=== PATIENT | male | born 1980 | race Caucasian/White ===

== ENCOUNTER 2024-06-14 09:51 | Observation (INO) ==
--- OUTSIDE RECORDS SUMMARY | 2024-06-14 09:58 | External Medical Summary | Summary of Care ---
Author Name Unknown Organization [facility] Address [address] [place] [address] Phone [phone] Care Team Providers Care Ssn/Ssbn Weapons Equipment Operator Name Role Phone Unavailable Primary Care Provider Unavailabl e Reason for Visit * Reason Comments Outpatient Testing Encounter Details Date Type Department Care Team ([facility] st Contact Info) Description 03/12/2024 2:10 PM EDT Laboratory Laboratory [facility] [address] [place] [address] [facility] [address] [place] [address] Right lower quadrant abdominal pain Allergies No known active allergiesdocumented as of this encounter (statuses as of 03/12/2024) Medications Medication Sig Dispensed Refills Start Date End Date Status metroNIDAZOLE 500 MG Oral Tablet (Flagyl)Indications :Giardiasis Take 1 Tablet by mouth in the morning and 1 Tablet in the evening. 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 2-3 times a week 2021 Q2: How many drinks containi ng alcohol do you have on a typical day when you are drinking? Not asked 2021 Q3: How often do you have si x or more drinks on one occasion? Never 2021 PHQ-2 Answer Date Recorded PHQ-2 Score 0 03/25/2020 Hunger Vital Sign Answer Date Recorded Within the past 12 months, y ou worried that your food would run out before you got the money to buy more. Never true 06/25/20 22 Within the past 12 months, t he food you bought just didn't last and you didn't have money to get more. Never true 06/25/2022 Sex and Gender Information Value Date Recorded Sex Assigned at Male 06/25/2022 4:40 PM EDT Gender Identity Male 06/25/2022 4:40 PM EDT Sexual Orientation Choose not to disclose 2021 4:40 PM EDT Job Start Date Occupation Industry Not on file Not on file Not on file documented as of this encounter Plan of Treatment Upcoming Encounters Date Type Department Care Team (Late st Contact Info) Description 03/17/2024 10:15 AM EDT Imaging Radiology [facility] [address] [facility] [place] [address] 06/15/2024 8:40 AM EDT Office Visit Family Practice Sana Gusman [place] [address] [place] [address] Irais Guerrero PA-C [address] [place] [address] Pending Results Name Type Priority Associated Diagnoses Date /Time COMPREHENSIVE METABOLIC PANEL Lab Routine Right lower quadrant abdominal pain 03/12/2024 2:06 PM EDT CBC WITH WBC DIFFERENTIAL Lab Routine Right lower quadrant abdominal pain 03/12/2024 2:06 PM EDT LIPASE Lab Routine Right lower quadrant abdominal pain 03/12/2024 2:06 PM EDT CBC Lab Routine Right lower quadrant abdominal pain 03/12/2024 2:06 PM EDT DIFFERENTIAL, AUTOMATED Lab Routine Right lower quadrant abdominal pain 03/12/2024 2:06 PM EDT CULTURE, URINE, QUANTITATIVE Lab Routine Right lower quadrant abdominal pain 03/12/2024 2:10 PM EDT URINALYSIS WITH MICROSCOPIC EXAM Lab STAT Right lower quadrant abdominal pain 03/12/2024 2:10 PM EDT Health Maintenance Due Date Last Done Comments Hepatitis B (1 of 3 - 19+ 3-dose series) 1998 Depression Screening 03/25/2021 03/25/2020, 11/01/2015 (Discussed) COVID-19 Vaccine ( season) 2023 08/30/2021, 01/14/2021 Influenza Vaccine (FLU shot) (Season Ended) 2024 Diabetes Screening 07/03/2026 07/03/2023, 0 07/12/2022, 12/08/2018, Additional history exists Lipid Panel 07/12/2027 07/12/2022, 02/2019, 11/01/2015 (Discussed) DTaP,Tdap,and Td Vaccines (3 - Td or Tdap) 04/28/2029 04/28/2019, 06/30/2009 GARDASIL-HPV IMMUNIZATION SERIES Aged Out No longer eligible based on patient's age to complete this topic Hepatitis C Screening Discontinued MENINGOCOCCAL (MENACTRA/MENVEO) Aged Out No longer eligible based on patient's age to complete this topic Pneumococcal Vaccine: Pediatrics (0 to 5 Years) and At-Risk Patients (6 to 64 Years) Aged Out No longer eligible based on patient's age to complete this topic documented as of this encounter Medical Devices Not on filedocumented as of this encounter Visit Diagnoses Diagnosis Right lower quadrant abdominal pain Abdominal pain, right lower quadrant documented in this encounter Additional Health Concerns Infection Onset Date Last Indicated Resolved Time Giardia lamblia 07/05/2023 07/05/2023 documented as of this encounter
--- OUTSIDE RECORDS SUMMARY | 2024-06-14 09:58 | External Medical Summary | Summary of Care ---
Author Name Unknown Organization [facility] Address [address] [place] [address] Phone [phone] Care Team Providers Care Management Supervisor Name Role Phone Unavailable Primary Care Provider Unavailabl e Reason for Referral * (Within 24 hrs (call dept; emergent)) - Pending Review Specialty Diagnoses / Procedures Referred By Contac t Referred To Contact Radiology Diagnoses Right lower quadrant abdominal pain Procedures US ABDOMEN LIMITED Kelly Son MD [address] [place] [address] Referral ID Status Reason Start Date Expiration Date V isits Requested Visits Authorized [id number] Pending Review 03/12/2024 999 999 Reason for Visit * Reason Comments Abdominal Pain Encounter Details Date Type Department Care Team ([facility] Contact Info) Description 03/12/2024 1:00 PM EDT Office Visit General Internal Medicine Sana Gusman [place] [address] [place] [address] Kelly Son MD [address] [facility] [place] [address] Right lower quadrant abdominal pain* Allergies No known active allergiesdocumented as of [...] on file documented as of this encounter Last Filed Vital Signs Vital Sign Reading Time Taken Comments Blood Pressure 110/72 03/12/2024 1:16 PM EDT Pulse 56 03/12/2024 1:16 PM EDT Temperature 36.6 C (97.8 F) 03/12/2024 1:16 PM ED T Respiratory Rate 16 03/12/2024 1:16 PM EDT Oxygen Saturation 99% 03/12/2024 1:16 PM EDT Inhaled Oxygen Concentration - - Weight 87 kg (191 lb 11.2 oz) 03/12/2024 1:16 PM EDT Height 178.6 cm (5' 10.32") 03/12/2024 1:16 PM E DT Body Mass Index 27.26 03/12/2024 1:16 PM EDT documented in this encounter Progress Notes * Kelly Son MD - 03/12/2024 1:20 PM EDT Images from the original note were not included. History of Present Illness Gulshan Melo is a 43 year old male that presents for Abdominal Pain Pt is here for the acute concern. Has Rt lower abd pain states 10 days back had acute, severe pain 8/10 on scale No nausea Radiation to flank. No urinary s/s. No fever, chills but sweatting when had episode. Physical Exam Vitals: 03/12/24 1316 Temp: 36.6 C (97.8 F) Pulse: 56 Resp: 16 SpO2: 99% BP: 110/72 BMI: 27.26 BP Readings from Last 3 Encounters: 03/12/24 110/72 07/02/23 118/60 06/27/22 122/68 Wt Readings from Last 3 Encounters: 03/12/24 87 kg (191 lb 11.2 oz) 07/02/23 83.2 kg (183 lb 6.4 oz) 06/27/22 86.6 kg (191 lb) BMI Readings from Last 3 Encounters: 03/12/24 27.26 kg/m 07/02/23 26.08 kg/m 06/27/22 27.16 kg/m Ht Readings from Last 3 Encounters: 03/12/24 1.786 m (5' 10.32") 06/27/22 1.786 m (5' 10.32") 06/13/21 1.803 m (5' 11") Abd - soft, minimal mid abd tenderness. No grointenderness. I have reviewed the following results: BMP and None Assessment and Plan Right lower quadrant abdominal pain (Primary) - COMPREHENSIVE METABOLIC PANEL; Future; Expected date: 03/12/2024 - CBC WITH WBC DIFFERENTIAL; Future; Expected date: 03/12/2024 - LIPASE; Future; Expected date: 03/12/2024 - CULTURE, URINE, QUANTITATIVE; Future; Expected date: 03/12/2024 - URINALYSIS WITH MICROSCOPIC EXAM; Future; Expected date: 03/12/2024 - US ABDOMEN LIMITED; Future; Expected date: 03/12/2024 ER if any emergencies. Continue hydration, low sat, low fat diet. Wrap-Up Time: I spent a total of 30-39 minutes (exact time 30 mins) on the date of service in preparation, delivery, and documentation of the care provided to Gulshan Melo excluding any time spent in the performance of separately billed services. documented in this encounter Nursing Notes * Anna Kapoor LPN - 03/12/2024 1:13 PM EDT Patient presents today for off and on lower right abdominal pain. He said that it was pretty intense for a day but has calmed down. He said that it is constant discomfort and making him feel like it is full. He said that he is has been unusually fatigued as well. He said that it started a week and a half ago. documented in this encounter Plan of Treatment Upcoming Encounters Date Type Department Care Team (Late st Contact Info) Description 03/12/2024 2:10 PM EDT Laboratory Laboratory [facility] [address] [place] [id number] Shawna Gusman [address] [place] [address] Arrived 03/17/2024 10:15 AM EDT Imaging Radiology [facility] [address] [facility] [place] [address] 06/15/2024 8:40 AM EDT Office Visit Family Practice Sana Gusman [place] [address] [place] [address] Irais Guerrero PA-C [address] [facility] [place] [address] Scheduled Orders Name Type Priority Associated Diagnoses Orde r Schedule COMPREHENSIVE METABOLIC PANEL Lab Routine Right lower quadrant abdominal pain Expected: 03/12/2024 (Approximate), Expires: 03/12/2025 CBC WITH WBC DIFFERENTIAL Lab Routine Right lower quadrant abdominal pain Expected: 03/12/2024 (Approximate), Expires: 03/12/2025 LIPASE Lab Routine Right lower quadrant abdominal pain Expected: 03/12/2024 (Approximate), Expires: 03/12/2025 CULTURE, URINE, QUANTITATIVE Lab Routine Right lower quadrant abdominal pain Expected: 03/12/2024, Expires: 03/12/2025 URINALYSIS WITH MICROSCOPIC EXAM Lab STAT Right lower quadrant abdominal pain Expected: 03/12/2024, Expires: 03/12/2025 US ABDOMEN LIMITED Medical Imaging STAT Right lower quadrant abdominal pain Expected: 03/12/2024, Expires: 04/12/2025 Health Maintenance Due Date Last Done Comments Hepatitis B (1 of 3 - 19+ 3-dose series) 1998 Depression Screening 03/25/2021 03/25/2020, 11/01/2015 (Discussed) COVID-19 Vaccine ( - 2022- season) 2023 08/30/2021, 01/14/2021 Influenza Vaccine (FLU shot) (Season Ended) 2024 Diabetes Screening 07/03/2026 07/03/2023, 0 07/12/2022, 12/08/2018, Additional history exists Lipid Panel 07/12/2027 07/12/2022, 0202/2019, 11/01/2015 (Discussed) DTaP,Tdap,and Td Vaccines (3 - [...] Visit Diagnoses Diagnosis Right lower quadrant abdominal pain- Primary Abdominal pain, right lower quadrant documented in this encounter Additional Health Concerns Infection Onset Date Last Indicated Resolved Time Giardia lamblia 07/05/2023 07/05/2023 documented as of this encounter
--- OUTSIDE RECORDS SUMMARY | 2024-06-14 09:58 | External Medical Summary ---
Author Name Unknown Address Unknown Organization [id number]:LABORATORY [facility] - [address] [place] [address] Laboratory Report Ordering Provider Test Date Status HARLAN SHORT 03/12/2024 14:06:04 Final Observation Date Value Abnormality Reference (Units ) Status Lipase 03/12/2024 14:06:04 31 13-60 (U/L ) Final Performing Location LAB[facility]ATORY [facility] - [address] [place] [address]
--- OUTSIDE RECORDS SUMMARY | 2024-06-14 09:58 | External Medical Summary ---
Author Name Unknown Address Unknown Organization [id number]:[facility] - [address] [place] [address] Laboratory Report Ordering Provider Test Date Status HARLAN SHORT 03/12/2024 14:10:32 Final Observation Date Value Abnormality Reference (Units ) Status Color of Urine by Auto 03/12/2024 14:10:32 Yellow Light Yellow, Yellow, Dark Yellow Final Clarity, Urine 03/12/2024 14:10:32 Clear Clear Final Glucose [Mass/volume] in Urine by Automated test strip 03/12/2024 14:10:32 Negative Negative (mg/dL) Final Bilirubin.total [Presence] in Urine by Automated test strip 03/12/2024 14:10:32 Negative Negative Final Ketones [Mass/volume] in Urine by Automated test strip 03/12/2024 14:10:32 Negative Negative (mg/dL) Final Specific gravity, Urine 03/12/2024 14:10:32 1.015 1.003-1.030 Final Hemoglobin [Presence] in Urine by Automated test strip 03/12/2024 14:10:32 Negative Negative Final pH, Urine 03/12/2024 14:10:32 5.0 5.0-7.5 (Units) Final Protein [Mass/volume] in Urine by Automated test strip 03/12/2024 14:10:32 Negative Negative (mg/dL) Final Urobilinogen [Mass/volume] in Urine by Automated test strip 03/12/2024 14:10:32 0.2 0.2, 1.0 (mg/dL) Final Nitrite [Presence] in Urine by Automated test strip 03/12/2024 14:10:32 Negative Negative Final Leukocyte esterase [Presence] in Urine by Automated test strip 03/12/2024 14:10:32 Negative Negative Final RBC, Urine 03/12/2024 14:10:32 0-2 0-2 (/HPF) Final WBC, Urine 03/12/2024 14:10:32 0-2 0-2 (/HPF) Final Bacteria [#/area] in Urine sediment by Microscopy high power field 03/12/2024 14:10:32 0-25 0-25 (/HPF) Final Performing Location [facility] [place] [place] [address]
--- OUTSIDE RECORDS SUMMARY | 2024-06-14 09:58 | External Medical Summary | Summary of Care ---
Author Name Unknown Organization [facility] Address [address] [place] [address] Phone [phone] Care Team Providers Care Blacksmith Supervisor Name Role Phone Unavailable Primary Care Provider Unavailabl e Reason for Visit * Reason Comments Outpatient Testing Encounter Details Date Type Department Care Team ([facility] st Contact Info) Description 03/12/2024 2:10 PM EDT Laboratory Laboratory [facility] [address] [place] [address] [facility] Lab [facility] [address] [place] [address] Right lower quadrant abdominal pain Allergies No [...] Dates Next Due Covid-19 Ad26, Single Dose (Ulisa/J&J) 021,01/14/2021 TD, Preservative Free 04/28/2019 TDAP (age [...] Description 03/17/2024 10:15 AM EDT Imaging Radiology [facility] [address] [facility] [place] [address] 06/15/2024 8:40 AM EDT Office Visit Family Practice Sana Gusman [place] [address] [place] [address] Irais Guerrero PA-C [address] [place] [address] Pending Results Name Type Priority Associated Diagnoses [...] Not on filedocumented as of this encounter Procedures Procedure Name Priority Date/Time Associated Diagnosis Comments DIFFERENTIAL, AUTOMATED Routine 03/12/2024 2:06 PM EDT Right lower quadrant abdominal pain CBC Routine 03/12/2024 2:06 PM EDT Right lower quadrant abdominal pain CBC Routine 03/12/2024 2:06 PM EDT Right lower quadrant abdominal pain documented in this encounter Results * (ABNORMAL) DIFFERENTIAL, AUTOMATED (03/12/2024 2:06 PM EDT) Pathologist [facility] WBC 6.77 4.00 - 10.80 K/uL 03/12/2024 2:11 PM EDT [facility] 56-02 Neutrophils % 45.5 40.0 - 75.0 % 03/12/2024 2:11 PM EDT [facility] 56-02 Lymphocytes % 42.5(H) 18.0 - 42.0 % 03/12/2024 2:11 PM EDT [facility] 56-02 Monocytes % 10.2 1.0 - 11.0 % 03/12/2024 2:11 PM EDT [facility] 56-02 Eosinophils % 1.5 0.0 - 6.0 % 03/12/2024 2:11 PM EDT [facility] 56- Basophils % 0.3 0.0 - 2.0 % 03/12/2024 2:11 PM EDT [facility] 56- Absolute Neutrophils 3.08 1.80 - 7.70 K/uL 03/12/2024 2:11 PM EDT [facility] 56-02 Absolute Lymphocytes 2.88 1.00 - 4.80 K/ul 03/12/2024 2:11 PM EDT [facility] 56-02 Absolute Monocytes 0.69 0.00 - 1.10 K/uL 03/12/2024 2:11 PM EDT [facility] 56-02 Absolute Eosinophils 0.10 0.00 - 0.70 K/uL 03/12/2024 2:11 PM EDT [facility] 56-02 Absolute Basophils 0.02 0.00 - 0.20 K/uL 03/12/2024 2:11 PM EDT [facility] 56-02 Blood Venous blood specimen / Unknown Venipuncture / Unknown 03/12/2024 2:06 PM EDT 03/12/2024 2:06 PM EDT Kelly Son MD LAB BLOOD ORDERA BLES [facility] 56- [address] [place] [address] * CBC (03/12/2024 2:06 PM EDT) WBC 6.77 4.00 - 10.80 K/uL 03/12/2024 2:11 PM EDT [facility] 56- RBC 4.98 4.50 - 5.25 M/uL 03/12/2024 2:11 PM EDT [facility] 56- HGB 14.6 14.0 - 16.8 g/dL 03/12/2024 2:11 PM EDT [facility] 56- HCT 43.6 40.0 - 48.4 % 03/12/2024 2:11 PM EDT [facility] 56- MCV 87.6 82.0 - 99.5 fL 03/12/2024 2:11 PM EDT [facility] 56 MCH 29.3 27.0 - 34.0 pg 03/12/2024 2:11 PM EDT [facility] 56 MCHC 33.5 32.0 - 36.0 g/dL 03/12/2024 2:11 PM EDT [facility] 56 RDW 12.7 11.5 - 15.5 % 03/12/2024 2:11 PM EDT [facility] 56 PLT 166 140 - 400 K/uL 03/12/2024 2:11 PM EDT [facility] 56 MPV 11.2 6.6 - 11.1 fL 03/12/2024 2:11 PM EDT [facility] 56 Blood Venous blood specimen / Unknown Venipuncture / Unknown 03/12/2024 2:06 PM EDT 03/12/2024 2:06 PM EDT Kelly Son MD LAB BLOOD ORDERA BLES [facility] 56- [address] [place], [place] [address] documented in this encounter Visit Diagnoses Diagnosis Right lower quadrant abdominal pain Abdominal pain, right lower quadrant documented in this encounter Additional Health Concerns Infection Onset Date Last Indicated Resolved Time Giardia lamblia 07/05/2023 07/05/2023 documented as of this encounter
--- OUTSIDE RECORDS SUMMARY | 2024-06-14 09:58 | External Medical Summary ---
Author Name Unknown Address Unknown Organization K09:[facility] [address] [place] [address] Laboratory Report Ordering Provider Test Date Status HARLAN SHORT 03/12/2024 14:06:04 Final Observation Date Value Abnormality Reference (Units ) Status SYNC LEUKOCYTES IN BLOOD BY AUTOMATED COUNT 03/12/2024 14:06:04 6.77 4.00-10.80 (K/uL) Final Segs 03/12/2024 14:06:04 45.5 40.0-75.0 (%) Final Lymphs % 03/12/2024 14:06:04 42.5 Above high normal 18.0-42.0 (%) Final Monos 03/12/2024 14:06:04 10.2 1.0-11.0 (%) Final Eosinophils 03/12/2024 14:06:04 1.5 0.0-6.0 (%) Final Basos 03/12/2024 14:06:04 0.3 0.0-2.0 (%) Final Absolute Segs 03/12/2024 14:06:04 3.08 1.80-7.70 (K/uL) Final Lymphs, absolute 03/12/2024 14:06:04 2.88 1.00-4.80 (K/ul) Final Monos, Abs 03/12/2024 14:06:04 0.69 0.00-1.10 (K/uL) Final Eos, Abs 03/12/2024 14:06:04 0.10 0.00-0.70 (K/uL) Final Basos, Abs 03/12/2024 14:06:04 0.02 0.00-0.20 (K/uL) Final Performing Location [facility] [address] [place] [address]
--- OUTSIDE RECORDS SUMMARY | 2024-06-14 09:58 | External Medical Summary ---
Author Name Unknown Address Unknown Organization K01:[facility] [place] [address] [place] [id number] Laboratory Report Ordering Provider Test Date Status HARLAN SHORT 03/12/2024 14:10:32 Final Observation Date Value Abnormality Reference (Units) Status Bacteria identified in Specimen by Culture 03/12/2024 14:10:32 No significant growth Final Test: Culture, Urine, Quanti tative
Specimen Source: Urine, Clean Catch
Specimen Type: Urine
Specimen Date: 03/12/2024 2:10 PM
Result Date: 03/13/2024 4:31 PM
Result Status: Final result
Resulting Lab: [facility]
[address]
[facility] [address]

CULTURE

No significant growth

null Performing Location [facility] - [address] [facility] [address]
--- OUTSIDE RECORDS SUMMARY | 2024-06-14 09:58 | External Medical Summary ---
Author Name Unknown Address Unknown Organization K09:[facility]ATORY [facility] - [address] [place] [address] Laboratory Report Ordering Provider Test Date Status HARLAN SHORT 03/12/2024 14:06:04 Final Observation Date Value Abnormality Reference (Units ) Status BUN 03/12/2024 14:06:04 16 6-20 (mg/dL) Final Creatinine 03/12/2024 14:06:04 1.2 0.6-1.2 (mg/dL) Final Glomerular filtration rate/1.73 sq M.predicted [Volume Rate/Area] in Serum, Plasma or Blood by Creatinine-based formula (CKD-EPI) 03/12/2024 14:06:04 80 >=60 (mL/min) Final eGFR is calculated based on the CKD-EPI 2020 equation Sodium 03/12/2024 14:06:04 140 135-146 (m mol/L) Final Potassium 03/12/2024 14:06:04 4.2 3.5-5.1 (m mol/L) Final Cl 03/12/2024 14:06:04 101 98-107 (mm ol/L) Final CO2 03/12/2024 14:06:04 28 22-32 (mmo l/L) Final Anion gap 03/12/2024 14:06:04 11 7-15 (mmol /L) Final Glucose 03/12/2024 14:06:04 85 70-120 (mg /dL) Final Albumin 03/12/2024 14:06:04 4.7 3.8-5.0 (g /dL) Final AST (Aspartate aminotransferase) 03/12/2024 14:06:04 20 10-50 (U/L) Final Alk Phos 03/12/2024 14:06:04 99 35-130 (U/ L) Final Bilirubin, Total 03/12/2024 14:06:04 0.3 <=1 .2 (mg/dL) Final Calcium 03/12/2024 14:06:04 9.8 8.4-10.2 ( mg/dL) Final Protein 03/12/2024 14:06:04 7.1 6.0-8.3 (g /dL) Final ALT (Alanine aminotransferase) 03/12/2024 14:06:04 20 10-50 (U/L) Final Performing Location [facility] [address] [place] [address]
--- NOTE | 2024-06-14 10:31 | Emergency Department Note ---
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 The patient reports that he noticed symptoms 2 nights ago when he woke up with it. He thought that he slept on his shoulder wrong. When he woke up the following morning, he reported that the pain was better. The patient reports since then, he has noticed fleeting pain radiating down the arm and into the neck. The patient has not noticed any neck stiffness or discomfort with movement of the neck. The patient reports that he was swimming yesterday without any problems. The patient reports that when he woke up this morning, he noticed worsening left lower rib discomfort that was worsened with deep breathing. He reports that he was also sweaty soaking his sheets. Upon further questioning, the patient reports that he has had some fatigue as well. He denies any upper respiratory symptoms such as runny nose, cough or sinus congestion. Patient denies any personal or family history of heart disease or known blood clots. Patient denies any recent trauma to the chest. The patient reports that he does have a history of intermittent left shoulder pain. Patient currently denies any significant discomfort. Home Medications Medication Instructions Recorded Confirmed Type No Known Home Medications 06/14/24 06/14/24 History Allergies Allergy/AdvReac Type Severity Reaction Status Date / Time No Known Allergies Unverified 09/26/10 20:26 Past Med/Surg History Problem List Multiple pulmonary emboli (Acute) Pulmonary embolism with infarction (Acute) Medical History No significant past medical history Surgical History History of wisdom tooth extraction History of arthroscopy of knee Family History Other Cancer Diabetes Heart disease Social History Smoking Status: Never smoker Hx Alcohol Use: Yes Alcohol Intake Frequency: 2-4 x/Month Alcohol Intake Frequency Comment: occasional current occupational status: employed 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 Feels Safe at Home: Yes Physical Activity Frequency: 5-6 Times per Week Physical Exam Vital Signs Vital Signs - 24 hr 06/14/24 09:56 06/14/24 10:22 06/14/24 10:30 Temperature 36.2 C L Temperature Source Temporal Artery Scan Pulse Rate 71 62 58 L Pulse Rate from SpO2 Sensor 58 L Pulse Rhythm Regular Respiratory Rate 20 14 16 Respiratory Effort / Characteristics Non-Labored Respiratory Depth Normal Blood Pressure 145/77 H Blood Pressure Mean 99 Pulse Oximetry 98 99 98 Oxygen Delivery Method Room Air Room Air Sepsis New/Unexplained Change in Mental Status No Sepsis Action Taken by Nursing No Action Required 06/14/24 10:30 06/14/24 10:57 06/14/24 11:11 Temperature Temperature Source Pulse Rate 64 Pulse Rate from SpO2 Sensor Pulse Rhythm Respiratory Rate Respiratory Effort / Characteristics Respiratory Depth Blood Pressure 145/88 H 133/78 Blood Pressure Mean 99 95 Pulse Oximetry Oxygen Delivery Method Sepsis New/Unexplained Change in Mental Status Sepsis Action Taken by Nursing 06/14/24 11:21 06/14/24 11:30 06/14/24 11:30 Temperature Temperature Source Pulse Rate 63 62 Pulse Rate from SpO2 Sensor 63 Pulse Rhythm Respiratory Rate 18 Respiratory Effort / Characteristics Respiratory Depth Blood Pressure 150/96 H Blood Pressure Mean 116 Pulse Oximetry 97 99 Oxygen Delivery Method Sepsis New/Unexplained Change in Mental Status Sepsis Action Taken by Nursing 06/14/24 11:45 06/14/24 11:54 06/14/24 12:00 Temperature Temperature Source Pulse Rate 61 58 L Pulse Rate from SpO2 Sensor 59 L 58 L Pulse Rhythm Respiratory Rate 17 17 Respiratory Effort / Characteristics Respiratory Depth Blood Pressure 173/97 H Blood Pressure Mean 120 Pulse Oximetry 99 98 99 Oxygen Delivery Method Sepsis New/Unexplained Change in Mental Status Sepsis Action Taken by Nursing 06/14/24 12:45 06/14/24 13:00 06/14/24 13:15 Temperature Temperature Source Pulse Rate 57 L 59 L 62 Pulse Rate from SpO2 Sensor Pulse Rhythm Respiratory Rate 18 13 17 Respiratory Effort / Characteristics Respiratory Depth Blood Pressure 140/83 Blood Pressure Mean 102 Pulse Oximetry 98 98 99 Oxygen Delivery Method Room Air Sepsis New/Unexplained Change in Mental Status Sepsis Action Taken by Nursing CONSTITUTIONAL: Healthy and well nourished. GCS 15. Patient does not appear in any acute distress. HEENT: No scleral icterus or conjunctival injection. NECK: Full active range of motion without discomfort. No tenderness to palpation through the left lower cervical nerve roots. LYMPHATICS: No cervical chain adenopathy. RESPIRATORY: Clear to auscultation bilaterally with no wheezing, crackles, rhonchi or stridor. Deep breathing worsens the patient's discomfort. CARDIOVASCULAR: Regular rate and rhythm with no murmurs, rubs or gallops. GASTROINTESTINAL: Bowel sounds present in all quadrants. Abdomen is soft and nontender to palpation. MUSCULOSKELETAL: Examination shows discomfort within the left shoulder region with full external rotation and crossover exam. No focal tenderness to palpation through the acromioclavicular joint, acromial process, bicipital groove or biceps/triceps musculature. No discomfort with reaching overhead. INTEGUMENTARY: No rash or other significant dermatologic conditions noted. HEMATOLOGIC: No ecchymosis or petechiae. PSYCHIATRIC: Positive affect. NEUROLOGIC: No focal neurologic deficits noted. Left deltoid and upper extremity are sensory intact. Course Course Patient history and physical exam were performed. Nurses notes were reviewed. Vital signs are reviewed, showing mildly elevated blood pressure. The patient is not otherwise tachycardic or hypoxic. IV access was established, and labs were drawn. An ECG was performed, showing a sinus bradycardia without any ST elevations or ischemic changes. The patient was placed on campus monitor while in the emergency department. A two-view chest x-ray was normal. Review of labs shows an elevated D-dimer, otherwise CBC, CMP, coagulation studies and troponin were normal. The patient was advised of his elevated D-dimer, with recommendations for chest CT angiography to rule out pulmonary embolus. The patient was in agreement with this plan. CT angiography of the chest was performed, showing multiple pulmonary emboli and possible left lower lobe infarct. Findings were discussed with the patient, Dr. Goodwin (ED attending physician), as well as the [facility] hospitalist service. As requested by the hospitalist service, I did order a hypercoagulability workup, as well as IV heparin bolus. Please see hospitalist dictations for further treatment and final disposition. Administered Medications Heparin Sodium/Dextrose (Heparin Sodium/Dextrose) 25,000 units in 500 mls @ 28 mls/hr IV .[id number] [facility]; Protocol Stop: 07/14/24 14:14 Last Admin: 06/14/24 14:51 Dose: 1,400 units/hr, 28 mls/hr Documented By: MILLY Co-signed By: FLAVIO Discontinued Medications Heparin Sodium (Porcine) (Heparin Sod (Porcine) 1000 Unit/Ml) 6,000 units IV NOW ONE Stop: 06/14/24 14:16 Last Admin: 06/14/24 14:51 Dose: 6,000 units Documented By: MILLY Co-signed By: OAC Ioversol (Optiray 320 125ml) 120 ml IV ONCE ONE Stop: 06/14/24 12:31 Last Admin: 06/14/24 12:30 Dose: 120 ml Documented By: ROSALINDA Medical Decision Making Medical Records Attestation: I reviewed the patient's medical records. Home Medications was personally reviewed by me Laboratory Data Attestation: I reviewed the patient's lab results. 06/14/24 11:03 06/14/24 11:03 Lab Results 06/14/24 Range/Units 11:03 WBC 9.69 (4.8-10.8) K/ul RBC 5.19 (4.70-6.10) M/uL Hgb 15.0 (14.0-18.0) g/dl Hct 43.2 (42.0-52.0) % MCV 83.2 (80.0-100.0) fL MCH 28.9 (25.0-34.0) pg MCHC 34.7 (32.0-36.0) g/dL RDW Std Deviation 36.3 L (36.4-46.3) fL RDW Coeff of Jay 11.9 (11.5-14.5) % Plt Count 154 (130-400) K/uL MPV 10.9 (9.4-12.4) fL Immature Gran % (Auto) 0.2 % Neut % (Auto) 66.1 % Lymph % (Auto) 23.9 % [place] % (Auto) 9.1 % Eos % (Auto) 0.5 % Baso % (Auto) 0.2 % Neut # (Auto) 6.40 (1.40-6.50) K/uL Lymph # (Auto) 2.32 (1.20-3.40) K/uL [place] # (Auto) 0.88 H (0.11-0.59) K/uL Eos # (Auto) 0.05 (0.00-0.50) K/uL Baso # (Auto) 0.02 (0.00-0.20) K/uL Immature Gran # (Auto) 0.02 (0.01-0.20) K/uL PT 11.0 (9.0-12.0) Seconds INR 1.0 (0.9-1.1) APTT 27 (21-31) Seconds PTT Ratio 1.0 D-Dimer 2040 H* (0-500) ug/L FEU Sodium 138 (136-145) mmol/L Potassium 3.9 (3.5-5.1) mmol/L Chloride 105 (98-107) mmol/L Carbon Dioxide 26 (21-32) mmol/L Anion Gap 7 (3-11) BUN 13 (6-23) mg/dl Creatinine 0.88 (0.6-1.4) mg/dl Est Cr Clr Drug Dosing 109.5 ml/min Est GFR ( Amer) 120.2 ml/min Est GFR (Non-Af Amer) 103.7 ml/min BUN/Creatinine Ratio 14.8 (10-20) Glucose 107 H (70-99(Fasting)) mg/dl Calcium 9.9 (8.6-10.3) mg/dl Total Bilirubin 0.9 (0.2-1.0) mg/dl AST 15 (13-39) U/L ALT 14 (7-52) U/L Alkaline Phosphatase 83 (34-104) U/L Troponin I High Sens 3.6 (0-20) pg/ml Total Protein 7.7 (6.0-8.3) gm/dl Albumin 4.4 (3.4-5.0) gm/dl Globulin 3.3 (2.5-4.0) gm/dl Albumin/Globulin Ratio 1.3 (0.9-2) Lipase 9 L (11-82) U/L Imaging Data Attestation: I personally reviewed and interpreted this imaging study as follows: My Impression: My interpretation of a two-view chest x-ray does not show evidence for any consolidations, pneumothorax or cardiomegaly. My interpretation of left shoulder x-rays shows significant degenerative changes, fractures or glenohumeral dislocation. My interpretation of a CT angiography of the chest shows multiple bilateral pulmonary emboli with a left lower lobe pulmonary infarct. Radiologist reports were also reviewed with concurrence. Radiologist's Impression: Chest X-Ray 06/14/24 10:22 XR chest 2V PA/lateral CLINICAL HISTORY: L chest/shoulder pain, dyspnea COMPARISON STUDY: No previous studies for comparison. FINDINGS: Lung volumes are normal. Lungs are clear. There is no pneumothorax or pleural effusion. Cardiac size is normal. Mediastinal contours are normal. There is no evidence for pulmonary edema. IMPRESSION: No acute cardiopulmonary findings. ACT 112: Negative or not required by law. Electronically signed by: Pacheco Fry M.D. 06/14/2024 10:52 AM Cervical Spine X-Ray 06/14/24 10:31 XR cervical [id number] routine CLINICAL HISTORY: L neck/shoulder pain COMPARISON STUDY: No previous studies for comparison. FINDINGS: Alignment of the cervical spine is anatomic. Vertebral body heights are maintained. There is no fracture. Disc spaces are preserved. Facet joints are intact. Prevertebral soft tissues are unremarkable. Bony neural foramen are patent. IMPRESSION: Unremarkable cervical spine radiographs. ACT 112: Negative or not required by law. Electronically signed by: Pacheco Fry M.D. 06/14/2024 10:53 AM Shoulder X-Ray 06/14/24 10:31 XR shoulder LT min 2V routine CLINICAL HISTORY: L shoulder pain COMPARISON: None FINDINGS: Alignment of the left shoulder is anatomic. There is no fracture. No osseous lesions. Glenohumeral joint space is preserved. There is mild joint space narrowing and moderate osteophytosis of the left acromioclavicular joint. IMPRESSION: 1. No fracture or dislocation within the left shoulder. 2. 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 ACT 112: Negative or not required by law. Electronically signed by: Pacheco Fry M.D. 06/14/2024 10:54 AM Chest CTA 06/14/24 12:17 CT ANGIOGRAPHY OF THE CHEST, PULMONARY EMBOLUS PROTOCOL CLINICAL HISTORY: Left-sided chest pain. Evaluate for pulmonary embolus. COMPARISON STUDY: Chest radiograph performed earlier today. TECHNIQUE: Following IV administration of 120 mL of Optiray, helical axial images of the chest were obtained utilizing the pulmonary embolus protocol. Maximal intensity projections and sagittal and coronal reformats were viewed on an independent 3D workstation. IV contrast was administered without complication. Automated exposure control was utilized for the study. A dose lowering technique was utilized adhering to the principles of ALARA. CT DOSE: 690.13 mGy.cm FINDINGS: There are several lobar, segmental and subsegmental pulmonary emboli, predominantly left-sided. No CT evidence for right heart strain. A 4.8 cm subpleural opacity within the left lower lobe on image 36 of 249 is noted. There are small bilateral pleural effusions. There is a 1.1 cm nodular opacity within the right lower lobe on image 102. Adjacent airspace opacity. The size of the heart is normal. There is no thoracic aortic dissection. No thoracic lymphadenopathy is present. Bony thorax and visualized portions of the upper abdomen are unremarkable. IMPRESSION: 1. Several lobar, segmental and subsegmental pulmonary emboli, predominantly left-sided. 4.8 cm subpleural left lower lobe airspace opacity suggestive of a pulmonary infarct. Small bilateral pleural effusions. 2. 1.1 cm nodular opacity within the right lower lobe. Given pulmonary emboli, this could reflect an additional small infarct. However, a pulmonary nodule could appear similar. Therefore, a chest CT in 2 months to ensure resolution is recommended. ACT 112: Negative or not required by law. Electronically signed by: Pacheco Fry M.D. 06/14/2024 1:10 PM ECG Data Attestation: I personally reviewed and interpreted this ECG as follows: Indication: + back/shoulder pain, + diaphoresis and + SOB/dyspnea Rate (beats per minute): 58 Rhythm: + sinus bradycardia ECG Intervals/blocks: + Normal QRS, + Normal QT and + Normal [place] ECG [place]: + Normal ECG ST segments: + Normal ST segments Comparison ECG Date: no prior available MDM Narrative Cardiac monitoring: An order was placed for continuous cardiac monitoring. The monitor shows a rate of 58 bpm with a sinus bradycardic rhythm. quality assurance monitor history was reviewed throughout the evaluation, and no dysrhythmias were noted. See ED Course section for further details of today's visit. The patient presents with symptoms that initially sounded to be musculoskeletal with shoulder pain after he awoke 3 days ago. Over the past few days, however, he has also noticed left-sided chest discomfort that is worsened with deep breathing. He also reports radicular type symptoms radiating into the neck and left upper extremity. On today's workup, the patient did have an elevated D- dimer, concerning for pulmonary embolism. CT angiography was performed, showing multiple pulmonary emboli with a left lower lobe infarct. [facility] I did order a hypercoagulability workup, as well as IV heparin. The remaining workup is not suggestive of an acute cardiac event. His ECG and troponin are normal. ECG and CT also are not showing any obvious heart strain. HEART score is 0. Patient does have mild osteoarthritic changes of the acromioclavicular joint, likely not contributing to the patient's discomfort. I do question the possibility of a left brachial plexitis. The patient does not have any physical exam findings to suggest cervical radiculitis, but this was also considered. Impression Pulmonary embolism with infarction, Multiple pulmonary emboli Critical Care Time Critical Care Time: Yes Total Critical Care Time: 35 I have personally spent 35 minutes of critical care time in the direct management of this patient. This includes bedside care, interpretation of diagnostic studies, and testing, discussion with consultants, patient, and family members, and other required patient management activities. This 30 minutes is in excess of all separately billable procedures. The patient did require IV heparin for multiple pulmonary emboli with a left pulmonary infarct. Discharge Plan Visit Data Chief Complaint: Shoulder Pain Stated Complaint: L SHOULDER PAIN, SOB, L RIB PAIN ED Provider: Giselle Goodwin ED Midlevel Provider: Winston Erickson Discharge Problem: Pulmonary embolism with infarction, Multiple pulmonary emboli Patient Disposition: Admitted As Inpatient Discharge Instructions Interventions: ED Discharge Assessment Last Done: 06/14/24 15:07 Forms Stand Alone Forms: My [employer] Prescriptions Prescriptions: No Action No Known Home Medications Referrals Referrals: PCP,NO [Primary Care Provider] -
--- NOTE | 2024-06-14 10:54 | XRay Report ---
XR cervical [id number] routine CLINICAL HISTORY: L neck/shoulder pain COMPARISON STUDY: No previous studies for comparison. FINDINGS: Alignment of the cervical spine is anatomic. Vertebral body heights are maintained. There i s no fracture. Disc spaces are preserved. Facet joints are intact. Prevertebral soft tissues are unre markable. Bony neural foramen are patent. IMPRESSION: Unremarkable cervical spine radiographs. ACT 112: Negative or not required by law. Electronically signed by: Pacheco Fry M.D. 06/14/2024 10:53 AM
--- NOTE | 2024-06-14 10:54 | XRay Report ---
XR chest 2V PA/lateral CLINICAL HISTORY: L chest/shoulder pain, dyspnea COMPARISON STUDY: No previous studies for comparison. FINDINGS: Lung volumes are normal. Lungs are clear. There is no pneumothorax or pleural effusion. Car diac size is normal. Mediastinal contours are normal. There is no evidence for pulmonary edema. IMPRESSION: No acute cardiopulmonary findings. ACT 112: Negative or not required by law. Electronically signed by: Pacheco Fry M.D. 06/14/2024 10:52 AM
--- NOTE | 2024-06-14 10:55 | XRay Report ---
XR shoulder LT min 2V routine CLINICAL HISTORY: L shoulder pain COMPARISON: None FINDINGS: Alignment of the left shoulder is anatomic. There is no fracture. No osseous lesions. Tristan ohumeral joint space is preserved. There is mild joint space narrowing and moderate osteophytosis of the left acromioclavicular joint. IMPRESSION: 1. No fracture or dislocation within the left shoulder. 2. 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 ACT 112: Negative or not required by law. Electronically signed by: Pacheco Fry M.D. 06/14/2024 10:54 AM
[2024-06-14 11:22] LABS: Basophils # (auto) 0.02 K/uL (0.00-0.20); Basophils % (auto) 0.2 %; Eosinophils # (auto) 0.05 K/uL (0.00-0.50); Eosinophils % (auto) 0.5 %; Hematocrit (blood only) 43.2 % (42.0-52.0); Immature Granulocytes # (auto) 0.02 K/uL (0.01-0.20); Immature Granulocytes % (auto) 0.2 %; Lymphocytes # (auto) 2.32 K/uL (1.20-3.40); Lymphocytes % (auto) 23.9 %; Mean Corpuscular Hemoglobin 28.9 pg (25.0-34.0); Mean Corpuscular Hgb Conc 34.7 g/dL (32.0-36.0); Mean Corpuscular Volume 83.2 fL (80.0-100.0); Mean Platelet Volume 10.9 fL (9.4-12.4); Monocytes # (auto) 0.88 K/uL (0.11-0.59); Monocytes % (auto) 9.1 %; Neutrophils % (auto) 66.1 %; Platelet Count 154 K/uL (130-400); RDW Coefficient of Variation 11.9 % (11.5-14.5); RDW Standard Deviation 36.3 fL (36.4-46.3); Red Blood Count 5.19 M/uL (4.70-6.10); White Blood Count 9.69 K/ul (4.8-10.8)
[2024-06-14 11:46] LABS: Albumin Globulin Ratio 1.3 (0.9-2); Albumin Level 4.4 gm/dl (3.4-5.0); BUN Creatinine Ratio 14.8 (10-20); Bilirubin,Total 0.9 mg/dl (0.2-1.0); Calcium 9.9 mg/dl (8.6-10.3); Creatinine Clr Calc Pharmacy 109.5 ml/min; Est GFR (African American) 120.2 ml/min; Est GFR (Non-African American) 103.7 ml/min; Globulin 3.3 gm/dl (2.5-4.0); Potassium 3.9 mmol/L (3.5-5.1); Total Protein 7.7 gm/dl (6.0-8.3)
[2024-06-14 11:52] LABS: Troponin I High Sensitivity 3.6 pg/ml (0-20)
[2024-06-14 11:56] LABS: Partial Thromboplastin Time 27 Seconds (21-31)
[2024-06-14 12:12] LABS: D Dimer 2040 ug/L FEU (0-500)
[2024-06-14] MEDS: OPTIRAY 320 125ml IV ONE (12:30)
--- NOTE | 2024-06-14 13:12 | CT Scan Report ---
CT ANGIOGRAPHY OF THE CHEST, PULMONARY EMBOLUS PROTOCOL CLINICAL HISTORY: Left-sided chest pain. Evaluate for pulmonary embolus. COMPARISON STUDY: Chest radiograph performed earlier today. TECHNIQUE: Following IV administration of 120 mL of Optiray, helical axial images of the chest were o btained utilizing the pulmonary embolus protocol. Maximal intensity projections and sagittal and cor onal reformats were viewed on an independent 3D workstation. IV contrast was administered without co mplication. Automated exposure control was utilized for the study. A dose lowering technique was ut ilized adhering to the principles of ALARA. CT DOSE: 690.13 mGy.cm FINDINGS: There are several lobar, segmental and subsegmental pulmonary emboli, predominantly left-s ided. No CT evidence for right heart strain. A 4.8 cm subpleural opacity within the left lower lobe o n image 36 of 249 is noted. There are small bilateral pleural effusions. There is a 1.1 cm nodular op acity within the right lower lobe on image 102. Adjacent airspace opacity. The size of the heart is n ormal. There is no thoracic aortic dissection. No thoracic lymphadenopathy is present. Bony thorax an d visualized portions of the upper abdomen are unremarkable. IMPRESSION: 1. Several lobar, segmental and subsegmental pulmonary emboli, predominantly left-sided. 4.8 cm subpl eural left lower lobe airspace opacity suggestive of a pulmonary infarct. Small bilateral pleural eff usions. 2. 1.1 cm nodular opacity within the right lower lobe. Given pulmonary emboli, this could reflect an additional small infarct. However, a pulmonary nodule could appear similar. Therefore, a chest CT in 2 months to ensure resolution is recommended. ACT 112: Negative or not required by law. Electronically signed by: Pacheco Fry M.D. 06/14/2024 1:10 PM
--- NOTE | 2024-06-14 13:32 | Electrocardiogram Report ---
Test Reason : Blood Pressure : */* mmHG Vent. Rate : 58 BPM Atrial Rate : 58 BPM P-R Int : 206 ms QRS Dur : 82 ms QT Int : 402 ms P-R-T Axes : 57 68 69 degrees QTcB Int : 394 ms Sinus bradycardia Otherwise normal ECG No previous ECGs available Confirmed by Matthew Hernandez ([id number]) on 06/14/2024 1:32:37 PM Referred By: REFERRED SELF Confirmed By: Matthew Hernandez
[2024-06-14] MEDS ORDERED: Heparin IV Adult Wt-Based Standard w/ INITIAL Bolus Protocol IV STA (13:47)
--- NOTE | 2024-06-14 13:47 | History & Physical Report ---
Date of Service June 14, 2024 Assessment & Plan (1) Multiple pulmonary emboli: Plan: This is a 44 y/o male with no significant past medical history who presented to the ED today with left shoulder pain radiating in his arm and neck. Work-up in the ED revealed an elevated D-Dimer so CTA chest ordered, which showed multiple PE, primarily on the left, with associated LLL infarct but no evidence of right heart strain. Pt denies prior hx of clot. He did have a recent long car ride so may be provoked but will need to rule out an underlying hypercoagulable state. Due to extensive clot burden, pt was referred for admission. Not currently hypoxic. He is hemodynamically stable - Observe on med telemetry - Start heparin gtt with bolus - likely transition to DOAC in 24-48 hours - Check ECHO to evaluate for right heart strain - Bilateral LE duplex to eval for DVT - Hypercoagulable panel ordered - to be drawn prior to initiation of heparin, may need outpatient hematology f/u. - Labs in the AM - CBC, BMP - Will need follow-up CT in 2 months for RLL nodular opacity Plan Pt seen and reviewed with collaborating physician, Dr. Lam. Plan of care discussed and as above. Code status: Full code DVT prophylaxis: on heparin gtt for bilataral PE Observe - med telemetry Yves Verdugo PA-C History of Present Illness Chief Complaint: left shoulder pain Primary Care Provider: ROLANDO PCP This is a 44 y/o male with no significant past medical history who presented to the ED today with left shoulder pain radiating in his arm and neck. He reports that two days ago, he felt more tired than usual after his run. Yesterday, he noticed pain in his left shoulder that he attributed to sleeping wrong on it. He took an ibuprofen for this but was able to complete his 2100 m swim without difficulty. That evening, he noticed the pain was starting to radiate to his neck and left arm. Last night, he had trouble sleeping, which is unusual for him. He woke up in the middle of the night soaked in sweat. This morning, he noted pain in his left lower chest with deep breathing and felt like it was difficult to take a deep breath. He denies exertional dyspnea, lightheadedness, or syncope. He noted intermittent racing heart last night but denies palpitations. He had a recent several hour car ride to [place] (2-3 weeks ago) but does report stopping every hour or two for breaks. He denies calf pain or swelling after this trip. No prior history of blood clots. No family history of clots. Denies smoking, recent procedure/surgery. He is usually very active, competing in triathlons. Allergies Allergy/AdvReac Type Severity Reaction Status Date / Time No Known Allergies Unverified 09/26/10 20:26 Home Medications Medication Instructions Recorded Confirmed Type No Known Home Medications 06/14/24 06/14/24 History Past Med/Surg History Problem List Multiple pulmonary emboli (Acute) Pulmonary embolism with infarction (Acute) Medical History No significant past medical history Surgical History History of wisdom tooth extraction History of arthroscopy of knee Family History Other Cancer Diabetes Heart disease Social History (Updated 06/14/24 @ 14:43 by Tamanna Verdugo PA-C) Smoking Status: Never smoker Hx Alcohol Use: Yes Alcohol Intake Frequency: 2-4 x/Month Alcohol Intake Frequency Comment: occasional current occupational status: employed 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 Feels Safe at Home: Yes Physical Activity Frequency: 5-6 Times per Week Review of Systems Review of Systems: All systems reviewed & are unremarkable except as noted in Subjective Physical Exam Physical Exam: General: awake, alert, NAD HEENT: no scleral icterus, moist oral mucosa Neck: supple, trachea midline Heart: RRR, no M/G/R Lungs: CTA bilaterally, no W/R/R Abdomen: soft, NT, +BS Extremities: no pedal edema, no calf tenderness; distal pulses intact and equal Skin: warm, dry, no jaundice or rashes Neurologic: OX3, no confusion or dysarthria, moving all extremities, no focal deficits Results & Data Results & Data Vital Signs (Past 12 Hours) Vital Signs Temp Pulse Resp BP Pulse Ox O2 Del Method 06/14/24 13:00 59 L 13 98 08/11/24 12:45 57 L 18 98 06/14/24 12:00 173/97 H 99 06/14/24 11:54 58 L 17 98 06/14/24 11:45 61 17 99 06/14/24 11:30 62 99 06/14/24 11:30 150/96 H 06/14/24 11:21 63 18 97 06/14/24 11:11 133/78 06/14/24 10:57 64 06/14/24 10:30 145/88 H 06/14/24 10:30 58 L 16 98 06/14/24 10:22 62 14 99 Room Air 06/14/24 09:56 36.2 C L 71 20 145/77 H 98 Room Air Laboratory Results Lab Results 06/14/24 Range/Units 11:03 WBC 9.69 (4.8-10.8) K/ul RBC 5.19 (4.70-6.10) M/uL Hgb 15.0 (14.0-18.0) g/dl Hct 43.2 (42.0-52.0) % MCV 83.2 (80.0-100.0) fL MCH 28.9 (25.0-34.0) pg MCHC 34.7 (32.0-36.0) g/dL RDW Std Deviation 36.3 L (36.4-46.3) fL RDW Coeff of Jay 11.9 (11.5-14.5) % Plt Count 154 (130-400) K/uL MPV 10.9 (9.4-12.4) fL Immature Gran % (Auto) 0.2 % Neut % (Auto) 66.1 % Lymph % (Auto) 23.9 % [place] % (Auto) 9.1 % Eos % (Auto) 0.5 % Baso % (Auto) 0.2 % Neut # (Auto) 6.40 (1.40-6.50) K/uL Lymph # (Auto) 2.32 (1.20-3.40) K/uL [place] # (Auto) 0.88 H (0.11-0.59) K/uL Eos # (Auto) 0.05 (0.00-0.50) K/uL Baso # (Auto) 0.02 (0.00-0.20) K/uL Immature Gran # (Auto) 0.02 (0.01-0.20) K/uL PT 11.0 (9.0-12.0) Seconds INR 1.0 (0.9-1.1) APTT 27 (21-31) Seconds PTT Ratio 1.0 D-Dimer 2040 H* (0-500) ug/L FEU Sodium 138 (136-145) mmol/L Potassium 3.9 (3.5-5.1) mmol/L Chloride 105 (98-107) mmol/L Carbon Dioxide 26 (21-32) mmol/L Anion Gap 7 (3-11) BUN 13 (6-23) mg/dl Creatinine 0.88 (0.6-1.4) mg/dl Est Cr Clr Drug Dosing 109.5 ml/min Est GFR ( Amer) 120.2 ml/min Est GFR (Non-Af Amer) 103.7 ml/min BUN/Creatinine Ratio 14.8 (10-20) Glucose 107 H (70-99(Fasting)) mg/dl Calcium 9.9 (8.6-10.3) mg/dl Total Bilirubin 0.9 (0.2-1.0) mg/dl AST 15 (13-39) U/L ALT 14 (7-52) U/L Alkaline Phosphatase 83 (34-104) U/L Troponin I High Sens 3.6 (0-20) pg/ml Total Protein 7.7 (6.0-8.3) gm/dl Albumin 4.4 (3.4-5.0) gm/dl Globulin 3.3 (2.5-4.0) gm/dl Albumin/Globulin Ratio 1.3 (0.9-2) Lipase 9 L (11-82) U/L Diagnostic Findings Chest X-Ray 06/14/24 10:22 XR chest 2V PA/lateral CLINICAL HISTORY: L chest/shoulder pain, dyspnea COMPARISON STUDY: No previous studies for comparison. FINDINGS: Lung volumes are normal. Lungs are clear. There is no pneumothorax or pleural effusion. Cardiac size is normal. Mediastinal contours are normal. There is no evidence for pulmonary edema. IMPRESSION: No acute cardiopulmonary findings. ACT 112: Negative or not required by law. Electronically signed by: Pacheco Fry M.D. 06/14/2024 10:52 AM Cervical Spine X-Ray 06/14/24 10:31 XR cervical [id number] routine CLINICAL HISTORY: L neck/shoulder pain COMPARISON STUDY: No previous studies for comparison. FINDINGS: Alignment of the cervical spine is anatomic. Vertebral body heights are maintained. There is no fracture. Disc spaces are preserved. Facet joints are intact. Prevertebral soft tissues are unremarkable. Bony neural foramen are patent. IMPRESSION: Unremarkable cervical spine radiographs. ACT 112: Negative or not required by law. Electronically signed by: Pacheco Fry M.D. 06/14/2024 10:53 AM Shoulder X-Ray 06/14/24 10:31 XR shoulder LT min 2V routine CLINICAL HISTORY: L shoulder pain COMPARISON: None FINDINGS: Alignment of the left shoulder is anatomic. There is no fracture. No osseous lesions. Glenohumeral joint space is preserved. There is mild joint space narrowing and moderate osteophytosis of the left acromioclavicular joint. IMPRESSION: 1. No fracture or dislocation within the left shoulder. 2. 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 ACT 112: Negative or not required by law. Electronically signed by: Pacheco Fry M.D. 06/14/2024 10:54 AM Chest CTA 06/14/24 12:17 CT ANGIOGRAPHY OF THE CHEST, PULMONARY EMBOLUS PROTOCOL CLINICAL HISTORY: Left-sided chest pain. Evaluate for pulmonary embolus. COMPARISON STUDY: Chest radiograph performed earlier today. TECHNIQUE: Following IV administration of 120 mL of Optiray, helical axial images of the chest were obtained utilizing the pulmonary embolus protocol. Maximal intensity projections and sagittal and coronal reformats were viewed on an independent 3D workstation. IV contrast was administered without complication. Automated exposure control was utilized for the study. A dose lowering technique was utilized adhering to the principles of ALARA. CT DOSE: 690.13 mGy.cm FINDINGS: There are several lobar, segmental and subsegmental pulmonary emboli, predominantly left-sided. No CT evidence for right heart strain. A 4.8 cm subpleural opacity within the left lower lobe on image 36 of 249 is noted. There are small bilateral pleural effusions. There is a 1.1 cm nodular opacity within the right lower lobe on image 102. Adjacent airspace opacity. The size of the heart is normal. There is no thoracic aortic dissection. No thoracic lymphadenopathy is present. Bony thorax and visualized portions of the upper abdomen are unremarkable. IMPRESSION: 1. Several lobar, segmental and subsegmental pulmonary emboli, predominantly left-sided. 4.8 cm subpleural left lower lobe airspace opacity suggestive of a pulmonary infarct. Small bilateral pleural effusions. 2. 1.1 cm nodular opacity within the right lower lobe. Given pulmonary emboli, this could reflect an additional small infarct. However, a pulmonary nodule could appear similar. Therefore, a chest CT in 2 months to ensure resolution is recommended. ACT 112: Negative or not required by law. Electronically signed by: Pacheco Fry M.D. 06/14/2024 1:10 PM Medications Administered Discontinued Medications Ioversol (Optiray 320 125ml) 120 ml IV ONCE ONE Stop: 06/14/24 12:31 Last Admin: 06/14/24 12:30 Dose: 120 ml Documented By: ROSALINDA
[2024-06-14] MEDS ORDERED: HEPARIN SOD (PORCINE) 1000 UNIT/ML IV ONE (14:03)
--- NOTE | 2024-06-14 14:41 | Communication Note ---
Date of Service: June 14, 2024 Attending Addendum: Case reviewed with the advanced practitioner. I have personally performed a history and physical examination on the patient. I have reviewed the advanced practitioner's documentation on the date of service referenced in note, and I agree with, and take responsibility for the plan of care. please refer to her notes for full details patient seen and examined, records reviewed by myself as well on exam, patient seen resting in bed, sitting up, in good spirits, comfortable on room air States he has left chest discomfort with inspiration, but no active shortness of breath, dizziness, palpitations no other symptoms VS noted and reviewed oriented x3 , not in distress, speaks in sentences with no effort nor accessory muscle use normal rate, regular rhythm, no murmurs clear breath sounds bilaterally non distended, soft, nontender no bipedal edema, erythema, warmth no neuro deficits all labs, imaging noted and reviewed ASSESSMENT AND PLAN Acute bilateral pulmonary embolism Risk factor: Long car ride to [place] 2 weeks ago Most likely provoked VTE but still needs to rule out hypercoagulable state Hemodynamically stable, on room air Check echocardiogram and Doppler studies of the lower extremities Instructed licensed staff mft to draw hypercoagulable panel before starting IV heparin Transition to NOACs in 24 to 48 hours Follow-up CT in 2 months to reevaluate right lower lobe pulmonary nodule versus pulmonary infarct other diagnoses and plan of care as per advanced practitioner's notes Gurmeet Lam MD
--- NOTE | 2024-06-14 14:48 | Hospitalist Progress Note ---
Date of Service June 14, 2024 Results & Data Results & Data Vital Signs (Past 12 Hours) Vital Signs Temp Pulse Resp BP Pulse Ox O2 Del Method 06/14/24 13:15 62 17 140/83 99 Room Air 06/14/24 13:00 59 L 13 98 06/14/24 12:45 57 L 18 98 06/14/24 12:00 173/97 H 99 06/14/24 11:54 58 L 17 98 06/14/24 11:45 61 17 99 06/14/24 11:30 62 99 06/14/24 11:30 150/96 H 06/14/24 11:21 63 18 97 06/14/24 11:11 133/78 06/14/24 10:57 64 06/14/24 10:30 145/88 H 06/14/24 10:30 58 L 16 98 06/14/24 10:22 62 14 99 Room Air 06/14/24 09:56 36.2 C L 71 20 145/77 H 98 Room Air
[2024-06-14] MEDS: HEPARIN SOD (PORCINE) 1000 UNIT/ML IV ONE (14:51)
[2024-06-14] MEDS: HEPARIN SODIUM/DEXTROSE 25,000 UNITS/500 ML BAG IV SCH (14:51)
--- NOTE | 2024-06-14 16:12 | Ultrasound Report ---
BILATERAL LOWER EXTREMITY VENOUS DOPPLER CLINICAL HISTORY: Pulmonary emboli. COMPARISON STUDY: No previous studies for comparison. TECHNIQUE: Sonography of the deep venous system of the bilateral lower extremities was performed. Co mpression and augmentation were evaluated. FINDINGS: There is a 3.4 cm focus of wall thickening within the right mid to distal superficial femo ral vein. This represents age-indeterminate deep venous thrombus. No additional sites of deep venous thrombus within the lower extremities were identified. IMPRESSION: 1. Small focus of age indeterminate deep venous thrombus within the right superficial femoral vein. 2. No additional sites of deep venous thrombus within the lower extremities. ACT 112: Negative or not required by law. Electronically signed by: Pacheco Fry M.D. 06/14/2024 4:10 PM
[2024-06-14] MEDS ORDERED: ONDANSETRON INJ 2 MG/ML 2 ML VIAL IV PRN (16:23)
[2024-06-14] MEDS ORDERED: ACETAMINOPHEN 325 MG TAB PO PRN (16:23)
[2024-06-14 21:46] LABS: ANTI-Xa, UFH(UnfractionatedHep 0.41 IU/ml (0.3-0.7)
[2024-06-15 06:31] LABS: Basophils # (auto) 0.03 K/uL (0.00-0.20); Basophils % (auto) 0.4 %; Eosinophils # (auto) 0.11 K/uL (0.00-0.50); Eosinophils % (auto) 1.5 %; Hematocrit (blood only) 41.5 % (42.0-52.0); Hemoglobin 14.6 g/dl (14.0-18.0); Immature Granulocytes # (auto) 0.02 K/uL (0.01-0.20); Immature Granulocytes % (auto) 0.3 %; Lymphocytes % (auto) 34.2 %; Mean Corpuscular Hemoglobin 28.8 pg (25.0-34.0); Mean Corpuscular Hgb Conc 35.2 g/dL (32.0-36.0); Mean Corpuscular Volume 81.9 fL (80.0-100.0); Mean Platelet Volume 11.1 fL (9.4-12.4); Monocytes # (auto) 0.69 K/uL (0.11-0.59); Monocytes % (auto) 9.5 %; Neutrophils # (auto) 3.95 K/uL (1.40-6.50); Neutrophils % (auto) 54.1 %; Platelet Count 165 K/uL (130-400); RDW Coefficient of Variation 11.9 % (11.5-14.5); RDW Standard Deviation 35.8 fL (36.4-46.3); Red Blood Count 5.07 M/uL (4.70-6.10)
[2024-06-15 06:46] LABS: ANTI-Xa, UFH(UnfractionatedHep 0.35 IU/ml (0.3-0.7)
[2024-06-15 07:03] LABS: Calcium 9.5 mg/dl (8.6-10.3); Est GFR (Non-African American) 100.1 ml/min
[2024-06-15] MEDS: APIXABAN 5 MG TABLET PO SCH (08:40)
--- NOTE | 2024-06-15 10:03 | Discharge Summary ---
Discharge Summary Date of Service June 15, 2024 Principal Dx & Hospital Course #1 = Principal Diagnosis (1) Multiple pulmonary emboli: (2) Acute deep vein thrombosis of right lower extremity: (3) Pulmonary embolism with infarction: (4) Pleuritic chest pain: Plan Patient presented to the hospital with acute onset of shortness of breath and chest pain and shoulder pain. Diagnosed with bilateral pulmonary emboli and evidence of some pulmonary infarction. Chest pain associated with pleurisy from his PE. Patient was admitted to the hospital and started on IV heparin. Patient's heart rate remained stable. He was not hypoxic. His pleuritic chest pain improved. Following morning was transition to oral Eliquis. Laboratory studies were stable. Hypercoagulable state panel was sent and is pending. Patient reports he is feeling significantly improved. His history is most consistent with a provoked DVT in the right lower extremity due to prolonged sitting in the car with recent travel to [place]. Subsequently had bilateral pulmonary emboli as embolus broke off from the lower extremity DVT. History is not remarkable for hypercoagulable state. Panel is pending. Spent some time at the bedside explaining etiology of his DVT and PE. Reviewed treatment and length of treatment with Eliquis. Recommend patient be treated for minimum of 3 months. Can consider discontinuing Eliquis at that time if hyperchloride coagula state is negative. Patient we discharged home on Eliquis to follow-up with his PCP can consider outpatient hematology consultation if necessary. Notes For Next Care Provider Recommend Eliquis minimum of 3 months Follow-up hypercoagulable panel Consider hematology consult if abnormalities on hypercoagulable state Medication Changes From Visit Eliquis started for DVT and PE Admission HPI Per Admitting Provider This is a 44 y/o male with no significant past medical history who presented to the ED today with left shoulder pain radiating in his arm and neck. He reports that two days ago, he felt more tired than usual after his run. Yesterday, he noticed pain in his left shoulder that he attributed to sleeping wrong on it. He took an ibuprofen for this but was able to complete his 2100 m swim without difficulty. That evening, he noticed the pain was starting to radiate to his neck and left arm. Last night, he had trouble sleeping, which is unusual for him. He woke up in the middle of the night soaked in sweat. This morning, he noted pain in his left lower chest with deep breathing and felt like it was difficult to take a deep breath. He denies exertional dyspnea, lightheadedness, or syncope. He noted intermittent racing heart last night but denies palpitations. He had a recent several hour car ride to [place] (2-3 weeks ago) but does report stopping every hour or two for breaks. He denies calf pain or swelling after this trip. No prior history of blood clots. No family history of clots. Denies smoking, recent procedure/surgery. He is usually very active, competing in triathlons. Admission Exam Per Admitting Provider I refer you to the H&P Discharge Exam Constitutional: Alert, extremely fit HEENT: Mucous membranes moist. Lungs: Clear to auscultation, decreased, no wheezes rales or rhonchi CV: S1-S2, regular Abdomen: Soft, nontender, nondistended Extremities: No significant edema Neuro: No focal deficits Psych: Cooperative, normal mood Updated Medication List Medication Instructions Recorded Confirmed Type apixaban 5 mg (74 tabs) tablets in See Rx Instructions .Route 06/15/24 Rx a dose pack ([employer]) .COMPLEX #74 ea Hospital Stay Data Diagnostic Imagining Performed Reviewed imaging, laboratory and diagnostic studies. Pertinent findings as below. CTA significant for bilateral pulmonary emboli with small pulmonary infarctions. Lower extremity ultrasound showed partial acute versus subacute DVT right femoral vein BMP and CBC stable Echocardiogram shows normal ejection fraction 6065% with normal left ventricular function. No evidence of pulmonary hypertension 06/14/24 12:17 CT angio chest PE protocol Stat 06/14/24 14:30 US venous duplex leg [US venous doppler LE BI] Routine Pending Results Patient Have Any Pending Studies at Discharge: Yes Discharge Instructions Given to Patient (Per Discharging Provider) Recommend you be on anticoagulation minimum of 3 months. Follow-up your hypercoagulable state studies with your PCP Total Time Total Time Spent Total Time Spent (In Minutes): 36
== END 2024-06-15 13:06 | disposition home or self-care (01) ==
LOC: 2N 09:51 → ED 09:51 → SUATTDRO 13:52 → 2N 15:07